=== PATIENT | male | born 1995 | race Caucasian/White ===

== ENCOUNTER → 2017-03-09 08:44 | Outpatient (CLI) | payer OTHER | END | disposition home or self-care (01) | LOC: LAB 08:44 | DX: I10 Essential (primary) hypertension (principal); D50.8 Other iron deficiency anemias; A56.2 Chlamydial infection of genitourinary tract, unspecified; A51.0 Primary genital syphilis; B20 Human immunodeficiency virus [HIV] disease; B18.9 Chronic viral hepatitis, unspecified; A60.00 Herpesviral infection of urogenital system, unspecified; B00.2 Herpesviral gingivostomatitis and pharyngotonsillitis; D69.2 Other nonthrombocytopenic purpura; D69.59 Other secondary thrombocytopenia; D51.3 Other dietary vitamin B12 deficiency anemia; D51.8 Other vitamin B12 deficiency anemias; R10.13 Epigastric pain; K29.70 Gastritis, unspecified, without bleeding ==

== ENCOUNTER 2017-04-04 09:58 | Outpatient (CLI) | payer OTHER | END 2017-04-04 10:09 | disposition home or self-care (01) | LOC: LAB 09:58 | DX: N39.0 Urinary tract infection, site not specified (principal) ==

== ENCOUNTER 2017-12-21 14:14 | Outpatient (CLI) | payer OTHER | END 2017-12-21 14:20 | disposition home or self-care (01) | LOC: LAB 14:14 | DX: L02.02 Furuncle of face (principal); B96.89 Other specified bacterial agents as the cause of diseases classified elsewhere ==